=== PATIENT | male | born 1955 | race Caucasian/White ===

== ENCOUNTER 2023-12-02 14:46 | Outpatient (CLI) | payer MEDICARE, BC, SELFPAY ==
--- OUTSIDE RECORDS SUMMARY | 2023-12-02 14:51 | XMS_ITS | Clinical Summary ---
Author Organization [facility] Address [address] [place] [address]. [place] [address] Care Team Providers Care Pigment Making Supervisor Name Role Phone No Ref-Primary, Physician Primary Care Provider Allergies Active Allergy Reactions Criticality Noted Date Comments Erythromycin Hives 06/13/2007 Medications Medication Sig Dispensed Refills Start Date End Date Status valACYclovir (VALTREX) 1000 mg tabletIndications:Srinivas matitis Take 1 tablet (1,000 mg) by mouth 3 times daily 21 tablet 06/08/2017 Active Social History Tobacco Use Types Packs/Day Years Used Date Smoking Tobacco: Never Smokeless Tobacco: Never Sex and Gender Information Value Date Recorded Sex Assigned at Not on file Gender Identity Not on file Sexual Orientation Not on file Last Filed Vital Signs Vital Sign Reading Time Taken Comments Blood Pressure 126/74 06/08/2017 4:21 PM CDT Pulse 61 06/08/2017 4:21 PM CDT Temperature 36.6 ??C (97.8 ??F) 06/08/2017 4:21 PM CD T Respiratory Rate 16 06/08/2017 4:21 PM CDT Oxygen Saturation 100% 06/08/2017 4:21 PM CDT Inhaled Oxygen Concentration - - Weight 102.5 kg (226 lb) 06/08/2017 4:21 PM CDT Height - - Body Mass Index - - Plan of Treatment Not on file Care Teams Pigment Making Supervisor Relationship Specialty Start Date End Date No Ref-Primary, Physician PCP - General 06/08/17
--- OUTSIDE RECORDS SUMMARY | 2023-12-02 14:51 | XMS_ITS | Referral Summary ---
Author Organization [facility] Address [address] [place] [address]. [place] [address] Care Team Providers Care Motorcycle Assembler Name Role Phone No Ref-Primary, Physician Primary [...] of Treatment Not on file Care Teams Motorcycle Assembler Relationship Specialty Start Date End Date No Ref-Primary, Physician PCP - General 06/08/17
--- OUTSIDE RECORDS SUMMARY | 2023-12-02 14:52 | XMS_ITS | Clinical Summary ---
Author Organization [employer] [facility] Address [place], [place] [address] Care Team Providers Care Travel Administrator Name Role Phone Abdiaziz Fregoso MD Primary Care Provider Allergies Active Allergy Reactions Criticality Noted Date Comments Erythromycin Hives 06/13/2007 Medications Medication Sig Dispensed Refills Start Date End Date Status betamethasone dipropionate 0.05% (DIPROSONE 0.05% CREAM) 0.05 % cream Apply topically to affected area(s) each time if needed. 2 06/17/2018 Active lisinopril-hydrochl orothiazide (10-12.5 mg) tablet (PRINZIDE; ZESTORETIC)Indicati ons:Benign essential HTN Take 1 Tablet by mouth once daily. 90 Tablet 3 05/07/2023 Active tamsulosin (FLOMAX) 0.4 mg capsuleIndications: Dysuria Take 1 Capsule (0.4 mg) by mouth once daily after a meal. 90 Capsule 3 05/07/2023 Active zolpidem (AMBIEN) 10 mg tabletIndications:I nsomnia, idiopathic TAKE ONE TABLET BY MOUTH ONE TIME DAILY AT BEDTIME NEEDED 90 Tablet 1 09/29/2023 Active triamcinolone 0.5 % cream Apply topically to affected area(s) 3 times daily if needed. Not to exceed 14 days same location per episode Active fexofenadine (SHAN) 180 mg tablet Take 180 mg by mouth once daily if needed for Allergy Symptoms. Do not crush or chew. Active cefuroxime axetil (CEFTIN) 500 mg tabletIndications:L eukocytosis, unspecified type Take 1 Tablet (500 mg) by mouth two times daily for 5 days. 10 Tablet 11/02/2023 11/07/2023 Active Problems Problem Noted Date Diagnosed Date Acute pancreatitis 11/01/2023 Cholestasis 11/01/2023 Leukocytosis 11/01/2023 DONNA (acute kidney injury) 11/01/2023 BPH (benign prostatic hyperplasia) 11/01/2023 Urinary retention 11/01/2023 Benign essential HTN 02/23/2022 Overweight 08/29/2020 Allergies 08/29/2020 Insomnia, idiopathic 08/29/2020 Prediabetes 07/23/2018 Personal history of colonic polyps 07/25/2010 Overview (06/29/2020): Colonoscopy 06/2010 polyps repeat in 5 years Colonoscopy 06/2020 hyperplastic polyp, repeat in 7 years Hyperlipidemia Encounters Date Type Department Care Team Description 11/07/2023 9:20 AM CDT Office Visit [facility] [address] [place] [address] Darryl Toledo DO Post-op (Choledocholithiasi s leukocytosis) 11/06/2023 Travel 11/04/2023 Patient Outreach [facility] [address] [place] [address] Venecia Bautista, RN Primary RN Care Management; Hospital F/U (LACE 46) 11/01/2023 3:45 PM CDT Anesthesia Event [facility] [address] [place] [address] Jhonatan Linda MD 11/01/2023 3:17 PM CDT - 11/01/2023 4:37 PM CDT Surgery [facility] [address] [place] [address] Lawrence Castellon MD ENDOSCOPIC ULTRASOUND UPPER 11/01/2023 11:50 AM CDT - 11/02/2023 2:08 PM CDT Hospital Encounter [facility] [address] [place] [address] [facility] Montalvo MBBS Leukocytosis, unspecified type (Primary Dx) Discharge Disposition: Home Self Care 10/31/2023 1:07 PM CDT - 11/01/2023 10:44 AM CDT Emergency [facility] [address] [place] [address] Damien Cramer PA Nguyen, ASHLY Sanchez William, MD Horejsi, Thomas Glenn, MD Bowler, Del Hardin MD Acute pancreatitis, unspecified complication status, unspecified pancreatitis type (Primary Dx); Leukocytosis, unspecified type; Elevated liver enzymes; Stage 3a chronic kidney disease (HC); Elevated C-reactive protein (CRP) Discharge Disposition: Short Term/PPS Hosp 10/31/2023 Travel 10/31/2023 Nurse Triage [facility] [address] [place] [address] Abdiaziz Fregoso MD Abdominal Pain 09/29/2023 Refill [facility] [address] [place] [address] Abdiaziz Fregoso MD Refill Request (Zolpidem) from Last 3 Months Immunizations Name Administration Dates Next Due AMB Influenza, IIV3 (Age >=3 years)(Flu Clinic Only) 12/10/2012,12/26/2011 COVID-19 Vaccine Spikevax (M oderna 50mcg/0.5mL) 12YO+ [id number] Formula PF 05/07/2023 COVID-19 vaccine (Pfizer-Bio NTech 30mcg/0.3mL) 12YO+ BIVALENT PF, MDV 01/25/2022 COVID-19 vaccine ([employer]-Bio NTech 30mcg/0.3mL) PF, MDV 06/13/2020,05/21/2020 Influenza A (H1N1), Inactiva tran (Age >=3 Years) 03/19/2009 Influenza, High-dose Quadriv alent Inactivated 12/21/2022 Influenza, IIV3 (Age >=3 years) 12/17/2009 Influenza, IIV4 12/16/2015,01/01/2015 Influenza, IIV4 (=>6mos) MDV 01/12/2020, 02/01/2019,12/14/2017,2016,12/23/2015 Influenza, Inactivated AIIV4 (Age 65+ Years) Preserv Free 01/25/2022,12/19/2020 Pneumococcal Poly,23-Valent (Pneumovax) 10/02/2019 Pneumococcal conj 13-Valent (Prevnar 13) 08/29/2020 Tdap 08/04/2018 Zoster (Shingrix-RZV, recombinant) 10/02/2019, Family History Medical History Relation Name Comments Diabetes Mother Rheum arthritis Mother Cancer-colon No Family History Cancer-prostate No Family History Heart attack No Family History Relation Name Status Comments Mother Social History Tobacco Use Types Packs/Day Years Used Date Smoking Tobacco: Never Smokeless Tobacco: Never Tobacco Cessation:Counseling Given: No Alcohol Use Standard Drinks/Week Comments Not Currently 0 (1 standard drink = 0.6 oz pur e alcohol) PHQ-2 Answer Date Recorded PHQ-2 TOTAL SCORE 0 05/07/2023 Social Connections Answer Date Recorded Frequency of Communication with Friends and Fami ly 0 05/04/2023 Financial Resource Strain Answer Date R ecorded Difficulty of Paying Living Expenses 3 05/04/2023 Difficulty of Paying Living Expenses Not on file 05/04/2023 Food Insecurity Answer Date Recorded Worried About Running Out of Food in the Last Ye ar 1 05/04/2023 Transportation Needs Answer Date Record ed Lack of Transportation (Medical) 1 05/04/2023 Housing Stability Answer Date Recorded Unable to Pay for Housing in the Last Year 1 05/04/2023 Sex and Gender Information Value Date Recorded Sex Assigned at Not on file Gender Identity Not on file Sexual Orientation Not on file Obstetrics History Last Filed Vital Signs Vital Sign Reading Time Taken Comments Blood Pressure 135/74 11/07/2023 9:13 AM CDT Pulse 50 11/07/2023 9:13 AM CDT Temperature 36.4 ??C (97.6 ??F) 11/02/2023 8:16 AM CD T Respiratory Rate 16 11/02/2023 8:16 AM CDT Oxygen Saturation 99% 11/07/2023 9:13 AM CDT Inhaled Oxygen Concentration - - Weight 92.9 kg (204 lb 14.4 oz) 11/07/2023 9:13 AM CDT Height 182.9 cm (6') 10/31/2023 1:15 PM CDT Body Mass Index 27.79 10/31/2023 1:15 PM CDT Plan of Treatment Health Maintenance Due Date Last Done Comments COVID-19 vaccine series ( season) 2023 05/07/2023, 01/25/2022, 06/30/2021, Additional history exists Influenza for age 65+ 11/24/2023 12/21/2022 , 01/25/2022, 12/19/2020, Additional history exists BMI (ht and wt on same day) for age 18+ 05/07/2024 05/07/2023, 09/24/2022, 01/25/2022, Additional history exists Depression screening for age 12+ 05/07/2024 05/07/2023, 01/25/2022, 08/30/2020, Additional history exists Medicare Wellness for age 65+ 05/07/2024, 01/25/2022, 08/29/2020 Lipids for age 45-75 05/07/2028 05/07/2023, 01/25/2022, 08/29/2020, Additional history exists Tetanus booster 08/04/2028 08/04/2018 Colonoscopy through age 75 06/28/203006/28, 06/28/2020, 07/25/2010, Additional history exists Hepatitis C screening for ag e 18-79 Completed 08/04/2018 Tdap Completed 08/04/2018 Zoster (shingles) series for age 50+ Completed 10/02/2019, 08/04/2018 Pneumococcal series for age 65+ Completed , 10/02/2019 Medical Devices Implanted Type Area Cotton Opener Device Identifier Shelf Expiration Date Model / Serial / Lot Stent Pancreatic [id number] Geenen Sof-Flex No Flap - [id number] Implanted:Qty: 1 on 11/01/2023 by Lawrence Castellon MD at [facility] [id number] - 3 / / [id number] Procedures Procedure Name Priority Date/Time Associated Diagnosis Comments LIPASE Routine 11/07/2023 9:56 AM CDT Calculus of bile duct without cholecystitis with obstruction Acute gallstone pancreatitis HEPATIC FUNCTION PANEL Routine 9:56 AM CDT Calculus of bile duct without cholecystitis with obstruction Acute gallstone pancreatitis AST (SGOT) Early AM 11/02/2023 6:41 AM CDT ALT (SGPT) Early AM 11/02/2023 6:41 AM CDT ALK PHOSPHATASE Early AM 11/02/2023 6:41 AM CDT BILIRUBIN,TOTAL Early AM 11/02/2023 6:41 AM CDT CREATININE Early AM 11/02/2023 6:41 AM CDT ELECTROLYTE PANEL Early AM 11/02/2023 6:41 AM CDT PLATELET COUNT Early AM 11/02/2023 6:41 AM CDT HEMOGLOBIN Early AM 11/02/2023 6:41 AM CDT WHITE BLOOD COUNT Early AM 11/02/2023 6:41 AM CDT XR ERCP BILIARY ONLY Routine 11/01/2023 4:34 PM CDT ENDOSCOPY 11/01/2023 4:03 PM CDT ENDOTRACHEAL TUBE Routine 11/01/2023 4:01 PM CDT ENDOTRACHEAL TUBE Routine 11/01/2023 4:01 PM CDT ENDOSCOPY 11/01/2023 3:41 PM CDT ENDOSCOPIC RETROGRADE CHOLANGIOPANCREATOGRAPHY WITH SPHINCTEROTOMY AND STONE REMOVAL 11/01/2023 3:35 PM CDT See note ENDOSCOPIC ULTRASOUND UPPER 11/2023 3:35 PM CDT See note US ABDOMEN LIMITED RUQ STAT 5:[address] ABDOMEN PELVIS W STAT 10/31/2023 3:55 PM CDT LACTATE VENOUS Today 10/31/2023 3:36 PM CDT TROPONIN T (HS) ONE TIME Timed 024 3:36 PM CDT URINALYSIS MICROSCOPIC STAT 2:22 PM CDT UA W/ SEDIMENT EXAM REFLEXED PER CRITERIA STAT 10/31/2023 2:22 PM CDT EKG 12 LEAD STAT 10/31/2023 2:13 PM CDT RED CELL MORPHOLOGY STAT 10/31/2023 1:39 PM CDT PLATELET ESTIMATE STAT 10/31/2023 1:39 PM CDT MANUAL DIFFERENTIAL STAT 10/31/2023 1:39 PM CDT CBC WITH AUTO DIFFERENTIAL STAT 10/30 1:39 PM CDT CBC WITH AUTO DIFFERENTIAL STAT 10/30 1:39 PM CDT TROPONIN T (HS) ACUTE W/2HR REFLEX STAT 10/31/2023 1:38 PM CDT C-REACTIVE PROTEIN STAT 10/31/2023 1:38 PM CDT LIPASE STAT 10/31/2023 1:38 PM CDT HEPATIC FUNCTION PANEL STAT 1:38 PM CDT BASIC METABOLIC PANEL STAT 10/31/2023 1:38 PM CDT LIPID PANEL W REFLEX MEASURE D LDL Routine 05/07/2023 9:45 AM [employer]IP DESIGN TE[employer]ER Hyperlipidemia, unspecified hyperlipidemia type COLONOSCOPY 06/28/2020 9:03 AM CDT ANTI HCV Routine 08/04/2018 5:34 PM CDT Need for hepatitis C screening test from Last 3 Months or Most Recently Relevant to Health Maintenance Results * (ABNORMAL) LIPASE (11/07/2023 9:56 AM CDT) Only the most recent of2 resultswithin the time period is included. LIPASE 131.0(H) 13.0 - 60.0 IU/L 11/07/2023 4:39 PM CDT [facility] Blood BLOOD SPECIMEN / Unknown Venipuncture / Unknown 11/07/2023 9:56 AM CDT 11/07/2023 9:59 AM CDT Darryl Toledo DO CHEMISTRY [facility] [address] [place] [address], * (ABNORMAL) HEPATIC FUNCTION PANEL (11/07/2023 9:56 AM CDT) Only the most recent of2 resultswithin the time period is included. ALBUMIN 4.1 4.0 - 4.9 g/dL 11/07/2023 4:39 PM CDT [facility] PROTEIN,TOTAL 7.3 6.0 - 8.0 g/dL 11/07/2023 4:39 PM CDT [facility] BILIRUBIN,TOTAL 0.8 0.0 - 1.2 mg/dL 11/07/2023 4:39 PM CDT [facility] BILIRUBIN,DIRECT 0.4(H) 0.0 - 0.2 mg/dL 11/07/2023 4:39 PM CDT [facility] BILIRUBIN,INDIRE CT 0.4 0.2 - 0.8 mg/dL 11/07/2023 4:39 PM CDT [facility] ALK PHOSPHATASE 264(H) 40 - 129 IU/L 11/07/2023 4:39 PM CDT [facility] ALT (SGPT) 147(H) 10 - 50 IU/L 11/07/2023 4:39 PM CDT [facility] AST (SGOT) 47 10 - 50 IU/L 11/07/2023 4:39 PM CDT [facility] Blood BLOOD SPECIMEN / Unknown Venipuncture / Unknown 11/07/2023 9:56 AM CDT 11/07/2023 9:59 AM CDT Darryl Toledo DO CHEMISTRY Performing Organization Address City/[facility]/ZIP Co de Phone Number [facility] [address] [place] [address], * PLATELET COUNT (11/02/2023 6:41 AM CDT) PLATELET COUNT 171 140 - 440 thou/cu mm 11/02/2023 7:00 AM CDT [facility] MPV 9.5 6.5 - 11.0 fL 11/02/2023 7:00 AM CDT [facility] Blood BLOOD SPECIMEN / Unknown Venipuncture / Unknown 11/02/2023 6:41 AM CDT 11/02/2023 6:53 AM CDT Mylene ESCALONA HEMATOLOGY [facility] [address] [place] [address], [place] * WHITE BLOOD COUNT (11/02/2023 6:41 AM CDT) WHITE BLOOD COUNT 8.4 4.5 - 11.0 thou/cu mm 11/02/2023 7:00 AM CDT [facility] NRBC 0.0 % 11/02/2023 7:00 AM CDT [facility] ABS NRBC 0.0 thou /cu mm 11/02/2023 7:00 AM CDT [facility] Blood BLOOD SPECIMEN / Unknown Venipuncture / Unknown 11/02/2023 6:41 AM CDT 11/02/2023 6:53 AM CDT [facility] Performing Organization Address [facility] Co de Phone Number [facility] [address] [place] [address], * (ABNORMAL) HEMOGLOBIN (11/02/2023 6:41 AM CDT) HEMOGLOBIN 12.0(L) 13.5 - 17.5 g/dL 11/02/2023 7:00 AM CDT [facility] MCV 89 80 - 100 fL 11/02/2023 7:00 AM CDT [facility] Blood BLOOD SPECIMEN / Unknown Venipuncture / Unknown 11/02/2023 6:41 AM CDT 11/02/2023 6:53 AM CDT [facility] HEMATOLOGY Performing Organization Address [facility] de Phone Number [facility] [address] [place] [address], * (ABNORMAL) Creatinine AM (11/02/2023 6:41 AM CDT) eGFR 83(L) >90 mL/min/1.7 3m2 11/02/2023 7:25 AM CDT [facility] Comment:As of 2021, eG FR is calculated by the CKD-EPI creatinine equation without race adjustment. ??eGFR can be influenced by muscle mass, exercise, and diet. ??The reported eGFR is an estimation only and is only applicable if the renal function is stable. CREATININE 0.98 0.70 - 1.20 mg/dL 11/02/2023 7:25 AM CDT [facility] Blood BLOOD SPECIMEN / Unknown Venipuncture / Unknown 11/02/2023 6:41 AM CDT 11/02/2023 6:52 AM CDT Mylene Montalvo [facility] CHEMISTRY Performing Organization Address City/[facility]/ZIP Co de Phone Number [facility] [address] [phone], [place] * (ABNORMAL) BILIRUBIN,TOTAL (11/02/2023 6:41 AM CDT) BILIRUBIN,TOTA L 1.9(H) 0.0 - 1.2 mg/dL 11/02/2023 7:25 AM CDT [facility] Blood BLOOD SPECIMEN / Unknown Venipuncture / Unknown 11/02/2023 6:41 AM CDT 11/02/2023 6:52 AM CDT Mylene Montalvo [facility] CHEMISTRY Performing Organization Address [facility] Co de Phone Number [facility] [address] [phone], [place] * (ABNORMAL) ALT (SGPT) (11/02/2023 6:41 AM CDT) ALT (SGPT) 257(H) 10 - 50 IU/L 11/02/2023 7:25 AM CDT [facility] Blood BLOOD SPECIMEN / Unknown Venipuncture / Unknown 11/02/2023 6:41 AM CDT 11/02/2023 6:52 AM CDT Mylene Montalvo [facility] CHEMISTRY Performing Organization Address City/[facility]/ZIP Co de Phone Number [facility] [address] [phone], [place] * (ABNORMAL) AST (SGOT) (11/02/2023 6:41 AM CDT) AST (SGOT) 51(H) 10 - 50 IU/L 11/02/2023 7:25 AM CDT [facility] Blood BLOOD SPECIMEN / Unknown Venipuncture / Unknown 11/02/2023 6:41 AM CDT 11/02/2023 6:52 AM CDT [facility] CHEMI[facility]Y Performing Organization Address [facility]/ZIP Co de Phone Number [facility] [address] [place] [address], * (ABNORMAL) ALK PHOSPHATASE (11/02/2023 6:41 AM CDT) ALK PHOSPHATASE 303(H) 40 - 129 IU/L 11/02/2023 7:25 AM CDT [facility] Blood BLOOD SPECIMEN / Unknown Venipuncture / Unknown 11/02/2023 6:41 AM CDT 11/02/2023 6:52 AM CDT Familiaakkimberlymaryjim paulina [facility] CHEMISTRY Performing Organization Address [facility]/ZIP Co de Phone Number [facility] [address] [place] [address], [place] * Electrolyte panel AM (11/02/2023 6:41 AM CDT) SODIUM 138 136 - 145 mmol/L 11/02/2023 7:25 AM CDT [facility] POTASSIUM 4.2 3.5 - 5.1 mmol/L 11/02/2023 7:25 AM CDT [facility] CHLORIDE 104 98 - 107 mmol/L 11/02/2023 7:25 AM CDT [facility] CO2,TOTAL 23 22 - 29 mmol/L 11/02/2023 7:25 AM CDT [facility] ANION GAP 11 5 - 18 11/02/2023 7:25 AM CDT [facility] Blood BLOOD SPECIMEN / Unknown Venipuncture / Unknown 11/02/2023 6:41 AM CDT 11/02/2023 6:52 AM CDT Mylene Patel Selvin [facility] CHEMISTRY [facility] [address] [place] [address], [place] * XR ERCP BILIARY ONLY (11/01/2023 4:34 PM CDT) Anatomical Region Laterality Modality GALLBLADDER, PANCREAS, LIVER Rad io Fluoroscopy 11/02/2023 8:26 AM CDT Impressions 11/02/2023 8:26 AM CDT Intraoperative images as above. Please see procedure note for details. Dictated by Celine Boyer MD @ Nov 02 2023 ??8:26AM (Electronically Signed) [email or web address] Narrative 11/02/2023 8:26 AM CDT For Patients: ??As a result of the Cures Act, medical imaging exams and procedure reports are released immediately into your electronic medical record. ??You may view this report before your referring provider. ??If you have questions, please contact your health care provider. INDICATION: ERCP COMPARISON: CT 10/31/2023 TECHNIQUE: Intraoperative fluoroscopy. FINDINGS: Two intraoperative fluoroscopic images obtained during ERCP. Images show instrumentation of the biliary system with contrast opacifying the common bile duct and central to mid intrahepatic bile ducts. Cholecystectomy clips. No contrast extravasation. Fluoro time 3 minutes 30 seconds. Procedure Note Celine Boyer MD - 11/02/2023 For Patients: As a result of the Cures Act, medical imagingexams and procedure reports are released immediately into your electronicmedical record. You may view this report before your referring provider.If you have questions, please contact your health care provider. INDICATION: ERCP COMPARISON: CT 10/31/2023 TECHNIQUE: Intraoperative fluoroscopy. FINDINGS: Two intraoperative fluoroscopic images obtained during ERCP. Images showinstrumentation of the biliary system with contrast opacifying the commonbile duct and central to mid intrahepatic bile ducts. Cholecystectomyclips. No contrast extravasation. Fluoro time 3 minutes 30 seconds. IMPRESSION: Intraoperative images as above. Please see procedure note for details. Dictated by Celine Boyer MD @ Nov 02 2023 8:26AM (Electronically Signed) [email or web address] Lawrence Castellon MD FLUOROSCOPY * ENDOSCOPY (11/01/2023 4:03 PM CDT) 11/01/2023 4:03 PM CDT Narrative Transcriptions Lawrence Castellon MD - 11/01/2023 4:31 PM CDT [facility] Patient Name: Jamir Shannon Procedure Date: 11/01/2023 Gender: Male Date of : 1955 Admit Type: Inpatient Procedure: ERCP Proceduralist: Lawrence Castellon MD - [facility] Indications/Pre-Op Diagnosis: Bile duct stone(s) Medications: General Anesthesia Procedure Description: Risk of bleeding, infection, perforation, pancreatitis, need for surgery, remote chance of and alternatives were discussed, andthe patient gave informed consent. The endoscope [id number] was passed through the mouth, and advanced to the duodenum and used to inject contrast into the bileduct. The ERCP was accomplished without difficulty. The patient toleratedthe procedure well. Complications: No immediate complications. Estimated Blood Loss & Specimen: Estimated blood loss: none. Specimen collected: None Findings: The scope was passed under direct vision through the upper GI tract.The entire examined stomach was normal. The examined duodenum was normal. The major papilla was normal. The bile duct was deeply cannulatedwith the short-nosed traction sphincterotome and guidewire. Contrast was injected. I personally interpreted the bile duct images. There wasbrisk flow of contrast through the ducts. Image quality was excellent. Contrast extended to the hepatic ducts. The entire biliary tree was diffusely dilated. The lower third of the main bile duct contained stone(s), the largest of which was 3 mm in diameter. Biliary sphincterotomy was made with a traction (standard) sphincterotome.There was no post-sphincterotomy bleeding. The biliary tree was swept witha 12 mm balloon starting at the bifurcation. A few stones were removed.No stones remained. One 5 Fr by 3 cm pancreatic stent with two external flaps and no internal flaps was placed into the ventral pancreaticduct. The stent was in good position. Impressions/Post-Op Diagnosis: - The entire biliary tree was dilated. - Choledocholithiasis was found. Complete removal was accomplished by biliary sphincterotomy and balloon extraction. - One pancreatic stent was placed into the ventral pancreatic duct. Recommendation: - Watch for pancreatitis, bleeding, perforation, and cholangitis. - Perform a flat plate abdominal x-ray in 2 weeks. Lawrence Castellon MD 11/01/2023 4:31:16 PM This report has been signed electronically. Note Initiated On: 11/01/2023 4:03 PM Lawrence Castellon MD PROCEDURE ORD * HCHG TUBE PR1, HCHG STYLET PR1 (11/01/2023 4:01 PM CDT) Narrative Favian Bautista CRNA - 11/01/2023 4:01 PM CDT Favian Bautista CRNA ? 11/01/2023 ??4:01 PM Procedure: ETT Patient location during procedure: OR ETT Properties Mask Ventilation: not attempted Type: straight Location: oral Cuffed: yes Tube Size: 8.0 mm Stylet: yes Laryngoscope Blade: Mac Blade Size: 4 Cormack-Lehane Grade View: 1 Insertion Attempts: 1 Placement Verification: auscultation, end tidal CO2 and symmetrical chest wall movement Assessment: pharynx clear, atraumatic and dentition unchanged Secured at: 23 Measured From: lips Difficulty: 0 (not difficult) Jhonatan Jez Coon MD ANESTHESIA PX NOTE ORDERABLES * ENDOSCOPY (11/01/2023 3:41 PM CDT) 11/01/2023 3:41 PM CDT Narrative Transcriptions Lawrence Castellon MD - 11/01/2023 4:28 PM CDT [facility] Patient Name: Jamir Shannon Procedure Date: 11/01/2023 Gender: Male Date of : 1955 Admit Type: Inpatient Procedure: Upper EUS Proceduralist: Lawrence Castellon MD - [place] [facility] Indications/Pre-Op Diagnosis: Common bile duct dilation (acquired) seen onCT scan, Suspected choledocholithiasis Medications: General Anesthesia Procedure Description: Risk of bleeding, infection, perforation, pancreatitis, need for surgery, remote chance of and alternatives were discussed, andthe patient gave informed consent. The endoscope [id number] was introduced through the mouth, and advanced to the third part of duodenum. The upper EUS wasaccomplished without difficulty. The patient tolerated the procedure well. Complications: No immediate complications. Estimated Blood Loss & Specimen: Estimated blood loss: none. Specimen collected: None Findings: ENDOSCOPIC FINDING: : The entire examined stomach was normal. The examined duodenum was normal. ENDOSONOGRAPHIC FINDING: : There was no sign of significant endosonographic abnormality in the ampulla. No masses were identified. There was dilation in the common bile duct which measured up to 12mm. One stone was visualized endosonographically in the lower third ofthe main bile duct. The stone measured 5 mm in greatest dimension. It was hyperechoic and characterized by shadowing. There was no sign of significant endosonographic abnormality in theleft lobe of the liver and in the right lobe of the liver. No focalpathology was identified. There was no sign of significant endosonographic abnormality in the pancreatic head. The pancreatic duct measured up to 3 mm in diameter.No masses, no cysts. Impressions/Post-Op Diagnosis: - There was dilation in the common bile duct which measured up to 12mm. - One stone was visualized endosonographically in the lower third ofthe main bile duct. Recommendation: - Perform an ERCP today. Lawrence Castellon MD 11/01/2023 4:28:33 PM This report has been signed electronically. Note Initiated On: 11/01/2023 3:41 PM Lawrence Castellon MD PROCEDURE ORD * US ABDOMEN LIMITED RUQ (10/31/2023 5:53 PM CDT) Anatomical Region Laterality Modality Abdomen, LIVER Ultrasound 10/31/2023 6:24 PM CDT Narrative 10/31/2023 6:24 PM CDT For Patients: ??As a result of the Century Cures Act, medical imaging exams and procedure reports are released immediately into your electronic medical record. ??You may view this report before your referring provider. ??If you have questions, please contact your health care provider. Indication: Abnormal liver function studies Technique: Limited right upper quadrant abdominal ultrasound Comparison: Same day CT abdomen/pelvis and CT abdomen/pelvis on September 17, 2022 Findings: Examination is limited secondary to overlying bowel gas. Liver: Normal in size and echogenicity. Gallbladder/biliary system: Status post cholecystectomy. The common hepatic duct measures 1.0 centimeters and the common bile duct measures 1.3 centimeters, likely secondary to reservoir effect from cholecystectomy. Pancreas: Not visualized. Right kidney: Unremarkable Visualized vasculature: Unremarkable Other: No free fluid. Impression: 1. The liver is normal in size and echogenicity with no focal hepatic lesions. 2. Status post cholecystectomy with dilatation of the common hepatic and bile ducts, likely secondary to reservoir effect from cholecystectomy. Dictated by Leon eHrnandez MD @ 10/31/2023 6:24:07 PM (Electronically Signed) Procedure Note Leon Hernandez MD - 10/31/2023 For Patients: As a result of the Cures Act, medical imagingexams and procedure reports are released immediately into your electronicmedical record. You may view this report before your referring provider.If you have questions, please contact your health care provider. Indication: Abnormal liver function studies Technique: Limited right upper quadrant abdominal ultrasound Comparison: Same day CT abdomen/pelvis and CT abdomen/pelvis on September 17, 2022 Findings: Examination is limited secondary to overlying bowel gas. Liver: Normal in size and echogenicity. Gallbladder/biliary system: Status post cholecystectomy. The commonhepatic duct measures 1.0 centimeters and the common bile duct measures1.3 centimeters, likely secondary to reservoir effect fromcholecystectomy. Pancreas: Not visualized. Right kidney: Unremarkable Visualized vasculature: Unremarkable Other: No free fluid. Impression: 1. The liver is normal in size and echogenicity with no focal hepaticlesions. 2. Status post cholecystectomy with dilatation of the common hepatic andbile ducts, likely secondary to reservoir effect from cholecystectomy. Dictated by Leon Hernandez MD @ 10/31/2023 6:24:07 PM (Electronically Signed) Damien ORDAZ US * CT ABDOMEN PELVIS W (10/31/2023 3:55 PM CDT) Anatomical Region Laterality Modality Abdomen, Pelvis, AORTA, LIVER, SPLEEN Computed Tomography 10/31/2023 4:20 PM CDT Impressions 10/31/2023 4:20 PM CDT 1. Abrupt termination of the CBD near the ampulla may be related to underlying non radiopaque stone or soft tissue lesion. Consider further evaluation/treatment with ERCP. 2. Mild intra and extrahepatic biliary ductal dilatation. 3. Fat stranding near the head of the pancreas, duodenum may be related to above narrowing/obstruction of the CBD. 4. Prostatomegaly indenting the base of the bladder. The bladder is distended and may be related to outlet obstruction in the setting of prostatomegaly. Correlate with UA for cystitis. Please note that all CT scans at this facility use dose modulation, iterative reconstruction, and/or weight-based dosing when appropriate to reduce radiation dose to as low as reasonably achievable. Dictated by Edith Lomeli MD @ 10/31/2023 4:20:58 PM (Electronically Signed) Narrative 10/31/2023 4:20 PM CDT For Patients: ??As a result of the Cures Act, medical imaging exams and procedure reports are released immediately into your electronic medical record. ??You may view this report before your referring provider. ??If you have questions, please contact your health care provider. INDICATION: Abdominal pain, acute, nonlocalized. TECHNIQUE: CT abdomen and pelvis acquired with 100 cc Omnipaque 300 IV contrast. COMPARISON: None. FINDINGS: Lower chest: Unremarkable. Liver: Unremarkable. Normal in size and attenuation. No suspicious masses. Gallbladder and bile ducts: Intra and extrahepatic biliary ductal dilatation. Status post cholecystectomy. There is abrupt termination of the common bile duct near the ampulla. No radiopaque stone identified. Soft tissue lesion can not be entirely excluded. Pancreas: Mild fat stranding near the head of the pancreas. Body and tail are unremarkable. Spleen: Unremarkable. Normal in size. No masses. Adrenal glands: Unremarkable. No nodules. Kidneys: Mild inflammatory stranding adjacent to the right mid ureter likely related to duodenal/biliary/pancreatic process. No renal or ureteral stones identified. No hydronephrosis or hydroureter. GI tract: No bowel obstruction. Appendix is within normal limits. Small hiatal hernia. Mild inflammatory stranding and mild wall thickening at the proximal duodenum. Vasculature: Abdominal aorta is normal in caliber. Mesenteric arteries are patent. ?? Lymph nodes: No lymphadenopathy. Peritoneum/Abdominal Wall: Mesenteric fat stranding near the head of the pancreas extending to the periaortic region near the SMA and celiac origin. No intra- abdominal free air or free fluid. Pelvis: Prostatomegaly. Bladder is distended. Mild bladder wall thickening may be related to outlet obstruction in the setting of prostatomegaly. Bones: Unremarkable for age. Procedure Note Edith Lomeli MD - 10/31/2023 For Patients: As a result of the Century Cures Act, medical imagingexams and procedure reports are released immediately into your electronicmedical record. You may view this report before your referring provider.If you have questions, please contact your health care provider. INDICATION: Abdominal pain, acute, nonlocalized. TECHNIQUE: CT abdomen and pelvis acquired with 100 cc Omnipaque 300 IV contrast. COMPARISON: None. FINDINGS: Lower chest: Unremarkable. Liver: Unremarkable. Normal in size and attenuation. No suspicious masses. Gallbladder and bile ducts: Intra and extrahepatic biliary ductaldilatation. Status post cholecystectomy. There is abrupt termination ofthe common bile duct near the ampulla. No radiopaque stone identified.Soft tissue lesion can not be entirely excluded. Pancreas: Mild fat stranding near the head of the pancreas. Body and tailare unremarkable. Spleen: Unremarkable. Normal in size. No masses. Adrenal glands: Unremarkable. No nodules. Kidneys: Mild inflammatory stranding adjacent to the right mid ureterlikely related to duodenal/biliary/pancreatic process. No renal orureteral stones identified. No hydronephrosis or hydroureter. GI tract: No bowel obstruction. Appendix is within normal limits. Smallhiatal hernia. Mild inflammatory stranding and mild wall thickening at theproximal duodenum. Vasculature: Abdominal aorta is normal in caliber. Mesenteric arteries arepatent. Lymph nodes: No lymphadenopathy. Peritoneum/Abdominal Wall: Mesenteric fat stranding near the head of thepancreas extending to the periaortic region near the SMA and celiacorigin. No intra- abdominal free air or free fluid. Pelvis: Prostatomegaly. Bladder is distended. Mild bladder wall thickeningmay be related to outlet obstruction in the setting of prostatomegaly. Bones: Unremarkable for age. IMPRESSION: 1. Abrupt termination of the CBD near the ampulla may be related tounderlying non radiopaque stone or soft tissue lesion. Consider furtherevaluation/treatment with ERCP. 2. Mild intra and extrahepatic biliary ductal dilatation. 3. Fat stranding near the head of the pancreas, duodenum may be related toabove narrowing/obstruction of the CBD. 4. Prostatomegaly indenting the base of the bladder. The bladder isdistended and may be related to outlet obstruction in the setting ofprostatomegaly. Correlate with UA for cystitis. Please note that all CT scans at this facility use dose modulation,iterative reconstruction, and/or weight-based dosing when appropriate toreduce radiation dose to as low as reasonably achievable. Dictated by Edith Lomeli MD @ 10/31/2023 4:20:58 PM (Electronically Signed) Damien ORDAZ CT * TROPONIN T (HS) ONE TIME (10/31/2023 3:36 PM CDT) [facility] TROPONIN T HS 12 6-15 ng/L ng/L 10/31/2023 4:01 PM CDT [facility] Blood BLOOD SPECIMEN / Unknown Venipuncture / Unknown 10/31/2023 3:36 PM CDT 10/31/2023 3:40 PM CDT Damien ORDAZ CHEMISTRY Performing Organization Address City/[facility]/ZIP Co de Phone Number [facility] [address] [place] [address] * LACTATE VENOUS (10/31/2023 3:36 PM CDT) [facility] LACTATE,VENOUS 1.0 0.5 - 2.0 mmol/L 10/31/2023 4:01 PM CDT [facility] Blood BLOOD SPECIMEN / Unknown Venipuncture / Unknown 10/31/2023 3:36 PM CDT 10/31/2023 3:40 PM CDT Damien ORDAZ CHEMISTRY [facility] [address] [place] [address] * (ABNORMAL) URINALYSIS MICROSCOPIC (10/31/2023 2:22 PM CDT) [facility] RBC 0-2 0-2, None Seen /HPF 10/31/2023 3:04 PM CDT [facility] WBC 6-10(A) 0-2, 3-5, None Seen /HPF 10/31/2023 3:04 PM [facility] BACTERIA Few None Seen, Rare, Few Bacteria/ HPF 10/31/2023 3:04 PM [facility] EPITHELIAL CELLS None Seen None Seen, Few Epi/HPF 10/31/2023 3:04 PM T [facility] Mucus Present 10/31/2023 3:04 PM [facility] HYALINE CASTS 0-2 0-2, 3-5 /LPF 10/31/2023 3:04 PM [facility] WBC CASTS 0-2(A) (none) /LPF 10/31/2023 3:04 PM [facility] Urine URINE SPECIMEN / Unknown Non-Blood / Unknown 10/31/2023 2:22 PM CDT 10/31/2023 2:24 PM CDT Damien ORDAZ URINE Performing Organization Address [facility]/State/ZIP Co de Phone Number [facility] [address] [place] [address] * (ABNORMAL) UA W/ SEDIMENT EXAM REFLEXED PER CRITERIA (10/31/2023 2:22 PM CDT) COLOR Yellow Yellow Color 10/31/2023 2:39 PM [facility] CLARITY Clear Clear Clarity 10/31/2023 2:39 PM [facility] SPECIFIC GRAVITY,URINE 1.010 1.010, 1.015, 1.020, 1.025 10/31/2023 2:39 PM [facility] PH,URINE 6.5 6.0, 7.0, 8.0, 5.5, 6.5, 7.5, 8.5 10/31/2023 2:39 PM [facility] UROBILINOGEN,QU ALITATIVE Normal Normal EU/dl 10/31/2023 2:39 PM [facility] PROTEIN, URINE Negative Negative mg/dL 10/31/2023 2:39 PM [facility] GLUCOSE, URINE Negative Negative mg/dL 10/31/2023 2:39 PM CDT [facility] KETONES,URINE Negative Negative mg/dL 10/31/2023 2:39 PM CDT [facility] BILIRUBIN,URINE Abnormal(A) Negative 10/31/19 2:39 PM CDT [facility] Comment:A variety of metabol ites and/or medications may result in a positive bilirubin result. Clinical correlation is recommended. OCCULT BLOOD,URINE Trace(A) Negative 10/31/2023 2:39 PM CDT [facility] NITRITE Negative Negative 10/31/2023 2:39 PM CDT [facility] LEUKOCYTE ESTERASE Negative Negative 10/31/2023 2:39 PM CDT [facility] Urine URINE SPECIMEN / Unknown Non-Blood / Unknown 10/31/2023 2:22 PM CDT 10/31/2023 2:24 PM CDT Damien ORDAZ URINE Performing Organization Address City/[facility] Co de Phone Number [facility] [address] [place] [address] * EKG 12 LEAD (10/31/2023 2:13 PM CDT) Pathologist [facility] [place] [facility] Interpretation Sinus bradycardia Otherwise normal ECG No previous ECGs available [facility] NOW Ventricular Rate 53 BPM BEYOND NOW Atrial Rate 53 BPM BEYOND NOW P-R Interval 154 ms BEYOND NOW QRS Duration 96 ms BEYOND NOW QT 420 ms BEYOND NOW QTc 394 ms BEYOND NOW P [place] 29 degrees BEYOND NOW R [place] -19 degrees BEYOND NOW T [place] 35 degrees BEYOND NOW 10/31/2023 2:13 PM CDT 10/31/2023 10:10 PM CDT Damien ORDAZ EKG ORD Performing Organization Address City/[facility] Co de Phone Number [facility] NOW [place], [place] * (ABNORMAL) CBC WITH AUTO DIFFERENTIAL (10/31/2023 1:39 PM CDT) Pathologist [facility] [place] [facility] WHITE BLOOD COUNT 19.0(H) 4.5 - 11.0 thou/cu mm 10/31/2023 2:40 PM CDT [facility] RED BLOOD COUNT 4.21(L) 4.30 - 5.90 mil/cu mm 10/31/2023 2:40 PM CDT [facility] HEMOGLOBIN 13.1(L) 13.5 - 17.5 g/dL 10/31/2023 2:40 PM CDT [facility] HEMATOCRIT 38.0 37.0 - 53.0 % 10/31/2023 2:40 PM CDT [facility] MCV 90 80 - 100 fL 10/31/2023 2:40 PM CDT [facility] MCH 31.1 26.0 - 34.0 pg 10/31/2023 2:40 PM CDT [facility] MCHC 34.5 32.0 - 36.0 g/dL 10/31/2023 2:40 PM T [facility] RDW 13.3 11.5 - 15.5 % 10/31/2023 2:40 PM CDT [facility] PLATELET COUNT 182 140 - 440 thou/cu mm 10/31/2023 2:40 PM [facility] MPV 9.7 6.5 - 11.0 fL 10/31/2023 2:40 PM T [facility] Blood BLOOD SPECIMEN / Unknown Venipuncture / Unknown 10/31/2023 1:39 PM CDT 10/31/2023 1:41 PM CDT Damien ORDAZ HEMATOLOGY [facility] [address] [place] [address] * RED CELL MORPHOLOGY (10/31/2023 1:39 PM CDT) RBC COMMENT RBC morphology appears normal RBC morphology appears normal, RBC morphology within normal limits for newborns. 10/31/2023 2:40 PM CDT [facility] LARGE PLATELETS Present 10/31/2023 2:40 PM T [facility] Blood BLOOD SPECIMEN / Unknown Venipuncture / Unknown 10/31/2023 1:39 PM CDT 10/31/2023 1:41 PM CDT Damien ORDAZ HEMATOLOGY [facility] [address] [place] [address] * PLATELET ESTIMATE (10/31/2023 1:39 PM CDT) PLATELET ESTIMATE Adequate Adequate, No estimate 10/31/2023 2:40 PM CDT [facility] Blood BLOOD SPECIMEN / Unknown Venipuncture / Unknown 10/31/2023 1:39 PM CDT 10/31/2023 1:41 PM CDT Damien ORDAZ HEMATOLOGY Performing Organization Address City/[facility]/ZIP Co de Phone Number [facility] [address] [place] [address] * (ABNORMAL) MANUAL DIFFERENTIAL (10/31/2023 1:39 PM CDT) Pathologist [facility] % NEUTROPHILS 73.0 % 10/31/2023 2:40 PM [facility] % LYMPHOCYTES 18.0 % 10/31/2023 2:40 PM [facility] % MONOCYTES 8.0 % 10/31/2023 2:40 PM [facility] % EOSINOPHILS 0.0 % 10/31/2023 2:40 PM [facility] % BASOPHILS 1.0 % 10/31/2023 2:40 PM T [facility] NEUTROPHILS ABSOLUTE 13.9(H) 1.7 - 7.0 thou/cu mm 10/31/2023 2:40 PM [facility] LYMPHOCYTES ABSOLUTE 3.4(H) 0.9 - 2.9 thou/cu mm 10/31/2023 2:40 PM [facility] MONOCYTES ABSOLUTE 1.5(H) <0.9 thou/cu mm 10/31/2023 2:40 PM CDT [facility] EOSINOPHILS ABSOLUTE 0.0 <0.5 thou/cu mm 10/31/2023 2:40 PM CDT [facility] BASOPHILS ABSOLUTE 0.2 <0.3 thou/cu mm 10/31/2023 2:40 PM CDT [facility] Blood BLOOD SPECIMEN / Unknown Venipuncture / Unknown 10/31/2023 1:39 PM CDT 10/31/2023 1:41 PM CDT Damien ORDAZ HEMATOLOGY [facility] [address] [place] [address] * TROPONIN T (HS) ACUTE W/2HR REFLEX (10/31/2023 1:38 PM CDT) TROPONIN T HS 13 6-15 ng/L ng/L 10/31/2023 3:19 PM CDT [facility] Blood BLOOD SPECIMEN / Unknown Venipuncture / Unknown 10/31/2023 1:38 PM CDT 10/31/2023 1:41 PM CDT Narrative [facility] - 10/31/2023 3:19 PM CDT hs-cTnT (Elecsys Troponin T Gen 5) concentration (s) above the sex-specific 99th percentile (16 ng/L or greater for males or 11 ng/L or greater for females) are indicative of myocardial injury. If initial hs-cTnT <=100 ng/L at presentation, a 0h/2h ABSOLUTE (ng/L) delta change (rising or falling) of >=10 ng/L suggests a significant change, whereas a 0h/2h delta change <=3 ng/L suggests no significant change. If initial hs-cTnT >100 ng/L at presentation, a 0h/2h/ RELATIVE (percent, %) delta change of 20% is suggested to distinguish patients with acute vs. chronic myocardial injury. There are multiple etiologies that can cause hs-cTnT increases above the 99th percentile (myocardial injury) other than acute myocardial infarction. Clinical context and careful clinical evaluation are critical for diagnosis and risk-stratification. The diagnosis of acute myocardial infarction requires a rising and/or falling pattern in hs-cTnT concentrations with at least one value above the sex-specific 99th percentile PLUS at least one of the following clinical criteria: ischemic symptoms, new or presumed new significant ST-T wave changes or new LBBB, development of pathological Q waves, imaging evidence of new loss of viable myocardium or new regional wall motion abnormality, or identification of intracoronary atherothrombosis or an acute angiographic culprit on coronary angiography. In appropriate low-risk patients with a non-ischemic electrocardiogram without active chest pain with a symptom onset >3-hours without recurrence, a single initial hs-cTnT<6 ng/L identifies patient with a very low risk in emergency department patient population. Damien ORDAZ CHEMISTRY Performing Organization Address [facility] Co de Phone Number [facility] [address] [place] [address] * (ABNORMAL) C-REACTIVE PROTEIN (10/31/2023 1:38 PM CDT) [facility] C-REACTIVE PROTEIN 10.6(H) <0.5 mg/dL 10/31/2023 3:19 PM CDT [facility] Blood BLOOD SPECIMEN / Unknown Venipuncture / Unknown 10/31/2023 1:38 PM CDT 10/31/2023 1:41 PM CDT Damien ORDAZ CHEMISTRY Performing Organization Address [facility] Co de Phone Number [facility] [address] [place] [address] * (ABNORMAL) BASIC METABOLIC PANEL (10/31/2023 1:38 PM CDT) SODIUM 133(L) 136 - 145 mmol/L 10/31/2023 3:19 PM CDT [facility] POTASSIUM 4.0 3.5 - 5.1 mmol/L 10/31/2023 3:19 PM CDT [facility] CHLORIDE 95(L) 98 - 107 mmol/L 10/31/2023 3:19 PM [facility] CO2,TOTAL 28 22 - 29 mmol/L 10/31/2023 3:19 PM [facility] ANION GAP 10 5 - 18 10/31/2023 3:19 PM [facility] GLUCOSE 152(H) 70 - 99 mg/dL 10/31/2023 3:19 PM [facility] CALCIUM 9.4 8.8 - 10.2 mg/dL 10/31/2023 3:19 PM [facility] BUN 24(H) 8 - 23 mg/dL 10/31/2023 3:19 PM [facility] CREATININE 1.55(H) 0.70 - 1.20 mg/dL 10/31/2023 3:19 PM [facility] BUN/CREAT RATIO 15 10 - 20 3:19 PM [facility] eGFR 48(L) >90 mL/min/1.7 3m2 10/31/2023 3:19 PM [facility] Comment:As of 2021, eG FR is calculated by the CKD-EPI creatinine equation without race adjustment. ??eGFR can be influenced by muscle mass, exercise, and diet. ??The reported eGFR is an estimation only and is only applicable if the renal function is stable. Blood BLOOD SPECIMEN / Unknown Venipuncture / Unknown 10/31/2023 1:38 PM CDT 10/31/2023 1:41 PM T Damien ORDAZ CHEMISTRY [facility] [address] [place] [address] * (ABNORMAL) LIPID PANEL W REFLEX MEASURED LDL (05/07/2023 9:45 AM [employer] DESIGN TE[employer]ER) CHOLESTEROL,TOTAL 216(H) 100 - 199 mg/dL 05/07/2023 8:38 PM [employer] DES[employer] [facility] Comment: Cholesterol, Total Reference Ranges Desirable <200 mg/dL Borderline 200-239 mg/dL High >=240 mg/dL TRIGLYCERIDES 128 <150 mg/dL 05/07/2023 8:38 PM [facility] HDL CHOLESTEROL 61 >40 mg/dL 8:38 PM [facility] NON-HDL CHOLESTEROL 155(H) <145 mg/dl 05/07/2023 8:38 PM [facility] CHOL/HDL RATIO 3.54 <4.50 05/07/2023 8:38 PM [employer] DES[employer] [facility] LDL CHOLESTEROL 129 <=130 mg/dL 05/07/2023 8:38 PM [facility] VLDL CHOLESTEROL 26 <=30 mg/dL 05/07/2023 8:38 PM [facility] PROVIDER ORDERED STATUS RANDOM 05/07/2023 8:38 PM [facility] Blood BLOOD SPECIMEN / Unknown Venipuncture / Unknown 05/07/2023 9:45 AM [employer] DES[employer] TE[employer]ER 05/07/2023 9:46 AM [employer] DESIGN TE[employer]ER Abdiaziz Fregoso MD CHEMISTRY [facility] [address] [place] [address], * COLONOSCOPY (06/28/2020 9:03 AM CDT) 06/28/2020 9:03 AM CDT Narrative Transcriptions Eleuterio Cornejo MD - 06/28/2020 9:51 AM CDT Patient Name: Jamir Shannon Procedure Date: 06/28/2020 Gender: Male Date of : 1955 Admit Type: Outpatient Procedure: Colonoscopy Proceduralist: Eleuterio Cornejo MD , Cherelle Mcgarry (Nurse) Indications/Pre-Op Diagnosis: Screening for colorectal malignant neoplasm, Last colonoscopy: June 2010 Medications: Fentanyl 100 micrograms IV, Midazolam 4 mgIV, The level of sedation administered wasmoderate Procedure Description: The patient had risks, benefits and alternatives explained to andgave informed consent. The patient had a stable cardiopulmonary status and judged an adequate candidate for conscious sedation. The Colon [id number] was passed through the anus and advancedto the cecum, identified by appendiceal orifice and ileocecal valve. The colonoscopy was performed without difficulty. The patient toleratedthe procedure well. The quality of the bowel preparation was good. The ileocecal valve, appendiceal orifice, and rectum were photographed. Complications: No immediate complications. Estimated Blood Loss & Specimen: Estimated blood loss: none. Specimen collected - Yes and sent to Laboratory Findings: The perianal and digital rectal examinations were normal. A 5 mm polyp was found in the descending colon. The polyp wassessile. The polyp was removed with a hot snare. Resection and retrieval were complete. The exam was otherwise without abnormality on direct and retroflexion views. Impressions/Post-Op Diagnosis: - One 5 mm polyp in the descending colon, removed with a hot snare. Resected and retrieved. - The examination was otherwise normal on direct and retroflexionviews. Recommendation: - Patient has a contact number available for emergencies. The signsand symptoms of potential delayed complications were discussed with the patient. Return to normal activities tomorrow. Written discharge instructions were provided to the patient. - Resume previous diet. - Continue present medications. - Await pathology results. - Repeat colonoscopy is recommended. The colonoscopy date will be determined after pathology results from today's exam become available for review. Moderate Sedation: Moderate (conscious) sedation was administered by the endoscopy nurse and supervised by the endoscopist. The following parameters were monitored: oxygen saturation, heart rate, respiratory rate, blood pressure, adequacy of pulmonary ventilation and reponse to care. Please refer to the patient's medical record flowsheets and nursing notes for moderate sedation details. Total physician intraservice time was 19 minutes. Eleuterio Cornejo MD 06/28/2020 9:51:50 AM This report has been signed electronically. Note Initiated On: 06/28/2020 9:03 AM Procedure Code(s): --- Professional --- 58378, Colonoscopy, flexible; with removalof tumor(s), polyp(s), or other lesion(s) bysnare technique Diagnosis Code(s): --- Professional --- Z12.11, Encounter for screening formalignant neoplasm of colon K63.5, Polyp of colon CPT copyright 2019 [employer]. All rights reserved. The codes documented in this report are preliminary and upon remote coders reviewmay be revised to meet current compliance requirements. Scope In: 9:32:28 AM Scope Withdrawal Time 0 hours 12 minutes 33 seconds Scope Out: 9:48:57 AM Eleuterio Cornejo MD PROCEDURE ORD * ANTI HCV (08/04/2018 5:34 PM CDT) HEPATITIS C ANTIBODY Non-React khari Non-React khari 08/05/2018 2:26 PM CDT [facility] Comment:Antibodies to HCV no t detected; does not exclude the possibility of exposure to HCV. Blood BLOOD SPECIMEN / Unknown Venipuncture / Unknown 08/04/2018 5:34 PM CDT 08/04/2018 5:34 PM CDT Abdiaziz Fregoso MD SEND OUTS [facility] [address] [place] [address], from Last 3 Months or Most Recently Relevant to Health Maintenance Advance Directives * Full Code (Latest Code Status on File) Date Activated Date Inactivated Comments 11/01/2023 12:24 PM 11/02/2023 4:13 PM Question Answer Comments Code Status Discussion: Reviewed Preferences * Full Code Date Activated Date Inactivated Comments 09/04/2007 11:18 AM 09/05/2007 2:10 AM Care Teams Travel Administrator Relationship Specialty Start Date End Date Abdiaziz Fregoso MD [address] [place] [address] PCP - General Family Practice 08/04/18
--- NOTE | 2023-12-02 15:00 | CRLHL7_ITS ---
For Patients: As a result of the Century Cures Act, medical imaging exams and procedure reports are released immediately into your electronic medical record. You may view this report before your referring provider. If you have questions, please contact your health care provider. INDICATION: Migration of pancreatic stent TECHNIQUE: Single view abdomen. FINDINGS: Cholecystectomy clip stent is not seen lower pelvis is not imaged. Nonobstructive bowel gas pattern with large amount of stool. Dictated by Cassandra Poe MD @ 12/03/2023 8:24:17 AM (Electronically Signed)
== END 2023-12-02 14:47 | disposition home or self-care (01) ==
LOC: RAD 14:49
PROVIDERS: PCP Family Medicine; Visit Provider Internal Medicine Gastroenterology
DX: T85.528A Displacement of other gastrointestinal prosthetic devices, implants and grafts, initial encounter (principal)
CPT/HCPCS: 74018